=== PATIENT | female | born 1995 | race Caucasian/White ===

== ENCOUNTER 2017-02-26 12:04 | Emergency (ER) | payer OTHER ==
[~2017-02-26] VITALS: Ht 172.7 cm; Wt 95.5 kg
[~2017-02-26 12:04] MED LIST: PRILOSEC 20MG20 MG PO; ZOFRAN 4MG T4 MG/TAB PO
[2017-02-26 12:15] VITALS: BP 134/71; PULSE 84; TEMP 98.2
[2017-02-26] MEDS ORDERED: CEPHALEXIN500 M1 PO (12:40)
== END 2017-02-26 12:47 | disposition home or self-care (01) ==
LOC: COL.ER 12:04
DX: S50.862A Insect bite (nonvenomous) of left forearm, initial encounter (principal); L03.114 Cellulitis of left upper limb; W57.XXXA Bitten or stung by nonvenomous insect and other nonvenomous arthropods, initial encounter